=== PATIENT | female | born 1930 | race Caucasian/White ===

== ENCOUNTER 2019-05-11 12:26 | Day surgery (SDC) | payer MEDICARE ==
[~2019-05-11] VITALS: Ht 157.5 cm; Wt 88.4 kg
[~2019-05-11 12:26] MED LIST: GLUC500T PO; LEVO25TA5 PO; LR 1,000 ML IV ONE; NORV5TAB PO; SIMV10TA2 PO; ceFAZolin SOD 1 GM in D5W MINI-BAG PLUS 50 ML IV ONE
[2019-05-11] MEDS ORDERED: fentaNYL 100 MCG/2 ML INJECTION (J3010) As Ordered ONE (14:06)
[2019-05-11] MEDS ORDERED: MIDAZOLAM INJ 2 MG/2 ML VIAL (J2250) As Ordered ONE (14:06)
[2019-05-11] MEDS ORDERED: LIDOCAINE 1% SDV INJ 30 ML VIAL As Ordered ONE (14:18)
[2019-05-11] MEDS ORDERED: dexameTHASONE 4 MG/ML 1ML VIAL (J1100) As Ordered ONE (14:26)
[2019-05-11] MEDS ORDERED: LIDOCAINE 2% INJ 100 MG/5 ML SDV (FOR ANES.) As Ordered ONE (14:26)
[2019-05-11] MEDS ORDERED: ONDANSETRON 4MG/2ML VIAL (J2405) As Ordered ONE (14:26)
[2019-05-11] MEDS ORDERED: PROPOFOL 200 MG/20 ML VIAL As Ordered ONE (14:26)
--- NOTE | 2019-05-11 16:02 | RO ---
DATE OF OPERATION: 05/11/2019 PREOPERATIVE DIAGNOSIS: Implantable loop recorder (ILR) in situ, which was at elective replace of indicator. POSTOPERATIVE DIAGNOSIS: Implantable loop recorder in situ, which was at elective replace of indicator. PROCEDURE PERFORMED: Explantation of old Medtronic LINQ implantable loop recorder. SURGEON: Patel Man MD VALVE PIPE IRRIGATOR: None. ANESTHESIA: Lidocaine 1% local/monitored anesthetic care. FINDINGS: ILR in situ, which was at elective replace of indicator. SPECIMENS: Old Medtronic Reveal LINQ implantable loop recorder. ESTIMATED BLOOD LOSS: Less than 3 mL. No blood products replaced. No drains. No complications. PROCEDURE DESCRIPTION: The patient was prepped and draped over the left anterior chest. Lidocaine 1% was used for local anesthetic. A #15 blade was used to make an incision approximately 1.5 cm in length over the short access of the medial aspect of the implantable loop recorder. The loop recorder was then pulled out with a snap. A bleeding source at the base of the capsule was successfully stopped using a single #2-0 Vicryl tie. The skin was then closed using a continuous subcuticular suture consisting of #4-0 Vicryl with the free ends of the suture protruding from the skin about 1 cm on either side. Two layers of Dermabond was the applied over the incision. The free ends of the Vicryl suture were then cut at the level of the skin. Patient tolerated the procedure well without any immediate complications.
[2019-05-11 16:10] VITALS: BP 167/76
== END 2019-05-11 16:18 | disposition home or self-care (01) ==
LOC: M SDC 12:26
PROVIDERS: ATTEND Internal Medicine Cardiovascular Disease
DX: Z45.09 Encounter for adjustment and management of other cardiac device (principal); Z95.818 Presence of other cardiac implants and grafts; E11.9 Type 2 diabetes mellitus without complications; E78.00 Pure hypercholesterolemia, unspecified; I10 Essential (primary) hypertension; Z79.84 Long term (current) use of oral hypoglycemic drugs; E03.9 Hypothyroidism, unspecified; Z79.899 Other long term (current) drug therapy
CPT/HCPCS: 33286; J0690; J1100; J2250; J2405; J3010

== ENCOUNTER 2019-08-27 22:21 | Inpatient (IN) | payer MEDICARE ==
[~2019-08-27] VITALS: Ht 157.5 cm; Wt 48.9 kg
[~2019-08-27 22:21] MED LIST changes: -LR 1,000 ML IV ONE; -ceFAZolin SOD 1 GM in D5W MINI-BAG PLUS 50 ML IV ONE
--- NOTE | 2019-08-27 23:52 | HPEPDOC ---
[facility] Medical History & Physical Date of Admission Aug 27, 2019 Date of Service: Aug 27, 2019 Attending Physician: CIRA BROWN MD History and Physical CHIEF COMPLAINT: Acute blood loss anemia--transfer from [facility] HISTORY OF PRESENT ILLNESS: Africa Ibarra is an 88 YO F with recent history of heart catheterization at [facility] in [place] who presents with several hours danielle bloody stools. The patient reports that she first noticed bloody stools around noon today. She describes her BM as watery and filled with dark red blood. She states she has started feeling somewhat dizzy and lightheaded but has not fallen. She has not had any shortness of breath. Of note, she recently underwent heart catheterization (06/2019) and stent placement (records will be acquired from [facility]) and is now on aspirin and plavix. She has also recently been worked up for syncope with an implantable loop recorder placed by Dr. Man. She states her last colonoscopy was a few years ago (done in [place]) and she does not remember the results. She does report that she had an episode of GI bleeding many years ago when she lived in [place]. PAST MEDICAL HISTORY: 1. HTN 2. T2DM (non-insulin dependent) 3. Hypercholesterolemia 4. Hypothyroidism PAST SURGICAL HISTORY: 1. Hysterectomy 2. SOCIAL HISTORY: Never smoker. No alcohol. FAMILY HISTORY: Father () had CAD, Mother had cancer, Asthma and Chronic lung disease in other family members ALLERGIES: Please see below. REVIEW OF SYSTEMS: CONSTITUTIONAL: Reports some dizziness/lightheadedness when standing HEENT: denies vision changes, no sinus problems, denies any trouble swallowing CARDIOVASCULAR: no palpitations RESPIRATORY: Denies any shortness of breath GENITOURINARY: No dysuria MUSCULOSKELETAL: Denies any joint/muscle pain GASTROINTESTINAL: Denies abdominal pain, no nausea/vomiting/diarrhea SKIN: No new rashes or lesions NEUROLOGICAL: No loss of sensation PSYCHIATRIC: Reports normal mood, no delusions or hallucinations ENDOCRINE: No hot/cold intolerance HEMATOLOGIC/LYMPHATIC: No easy bruising, no lumps/bumps ALLERGIC/IMMUNOLOGIC: No sinus symptoms HOME MEDICATIONS: Please see below. PHYSICAL EXAMINATION: VITAL SIGNS: Please see below. GENERAL APPEARANCE: Laying in bed, appears stated age, no acute distress, calm, cooperative HEENT: EOMI, PERRLA, neck is supple with no thyromegaly or lymphadenopathy, there is no conjunctival pallor, tongue is normal RESPIRATORY: Lungs are clear to auscultation bilaterally with no adventitious breath sounds appreciated CARDIOVASCULAR: no JVD, RRR, no murmurs/rubs/gallops, capillary refill is 4+ in all extremities ABDOMEN: Soft, nontender to palpation in all four quadrants, no masses/organomegaly EXTREMITIES: no clubbing, cyanosis or edema noted NEUROLOGICAL: No obvious focal deficits PSYCHIATRIC: normal mood/affect Skin: No rashes or ulcers. LN: No significant cervical or inguinal lymphadenopathy LABORATORY DATA: See below. IMAGING: none MICROBIOLOGY: Please see below. ASSESSMENT: This is an 88 YO F with recent history heart catheterization and stent placement (on ASA, plavix) who presents with several hours melanotic stools. PLAN: 1. Acute blood loss anemia: -H/H now 8.7/27.5. Patient is somewhat symptomatic with lightheadedness/dizziness -Will trend H/H -IV protonix -NPO for now -Type & Screen, pRBCs ordered for transfusion if Hgb <8 -Will order orthostatic vitals -Will continue ASA, Plavix for now so as to not cause stent thrombosis -Consider GI consult in AM for colonoscopy/EGD 2. CAD with recent stent placement: -Will obtain records from [facility]. Unsure of whether BMS or RIGO -Continue ASA, plavix for now -Consider Cardiology c/s in AM 3. Hypertension: -Continue home Valsartan 4. Hypothyroidism: -Thyroid panel pending -Continue home Levothyroxine 5. Anxiety disorder: -Continue home Buspar DISPO: Pending clinical improvement Home Medications Scheduled Aspirin (Aspir 81) 81 Mg Tablet.dr, 81 MG PO DAILY Atorvastatin Calcium (Atorvastatin Calcium) 40 Mg Tablet, 40 MG PO QHS Buspirone HCl (Buspirone HCl) 5 Mg Tablet, 5 MG PO BID PRESCRIBED 08/24/2019, HAS NOT STARTED Clopidogrel Bisulfate (Clopidogrel) 75 Mg Tablet, 75 MG PO QHS STARTED 08/21/2019 Levothyroxine Sodium (Levothyroxine Sodium) 25 Mcg Tablet, 25 MCG PO DAILY Metformin HCl (Glucophage) 500 Mg Tablet, 1,000 MG PO BID Metoprolol Tartrate (Metoprolol Tartrate) 25 Mg Tablet, 25 MG PO BID Multivitamin (Daily Kadeem) 1 Each Tablet, 1 TAB PO QHS Nitroglycerin (Nitrostat) 0.4 Mg Tab.subl, 0.4 MG SL NITRO Valsartan (Valsartan) 160 Mg Tablet, 160 MG PO QHS Allergies Coded Allergies: No Known Allergies (Unverified , 05/10/19) A-FIB/CHADSVASC A-FIB History Current/History of A-Fib/PAF?: No GME ATTESTATION GME ATTESTATION My faculty preceptor for this patient encounter was physically present during the encounter and was fully available. All aspects of the patient interview, examination, medical decision making process, and medical care plan development were reviewed and approved by the faculty preceptor. The faculty preceptor is aware and concurs with the plan as stated in the body of this note and will attest to such by his/her cosignature. ATTENDING NOTE I examined at 1155PM, discussed the case with and agree with the findings as documented above with the addition of the following. is an 88 yr old F w a PMH of NIDDM, Chronic HTN, Hypothyroidism, and CAD s/p stent placement last week who was transferred from [facility] for evaluation of BRBRP that begun at around 12 noon. Per d/w (ED Attending) her rectal exam was positive for BRBPR. Her physical exam is unremarkable. 1. Asymptomatic Acute Blood Loss Anemia 2/2 LGIB Her Hg was 9.7 which dropped from baseline of around 11.3. Plan: NPO w D5NS / f/u serial H/H / will aim to keep her Hg >8 because of her recent diagnosis of ACS / GI consult for possible c-scope this admission vs out pt c-scope at a later date 2. CAD / s/p Stent placement The patient had a stent placed on Aug 19 but is not sure if it is a RIGO or BMS She took ASA and Plavix at dinner time Per d/w Dr Bhandari her trop was wnl and the EKG showed NSR w an old inferior infarct which was similar to the previous EKG Plan: obtain records from [facility] to determine if she had a drug eluting vs BM stent / c/w DAPT for now to prevent early stent thrombosis / the day time team can consult Cardio in the morning to confirm that the patient needs to remain on DAPT for now 3.NIDDM Plan: f/u serum glucose & A1C / SSI / hold metformin rest per 's notes LATE ENTRY The patient's repeat Hg decreased to 8.7 and her MAP has decreased to 69. Per d/w IR we will order 2 units of PRBCs, CTA of the abdomen and pelvis (GI) protocol and transfer her to ICU. I will ask the day time team team to f/u with after the scan has been done. GME ATTESTATION GME ATTESTATION My faculty preceptor for this patient encounter was physically present during the encounter and was fully available. All aspects of the patient interview, examination, medical decision making process, and medical care plan development were reviewed and approved by the faculty preceptor. The faculty preceptor is aware and concurs with the plan as stated in the body of this note and will attest to such by his/her cosignature. MARGARITA JENKINS MD Aug 27, 2019 23:52 CIRA BROWN MD Aug 28, 2019 00:15
[2019-08-28] VITALS: BP 174/77
[2019-08-28] MEDS ORDERED: VALS1TAB67 PO (00:35)
[2019-08-28] MEDS ORDERED: DAILTAB51 PO (00:35)
[2019-08-28] MEDS ORDERED: NITR4TASL SL (00:35)
[2019-08-28] MEDS ORDERED: NS 1,000 ML IV SCH (00:35)
[2019-08-28] MEDS ORDERED: CLOP75TA2 PO (00:35)
[2019-08-28] MEDS ORDERED: METO25TA4 PO (00:35)
[2019-08-28] MEDS ORDERED: ATOR40TA75 PO (00:35)
[2019-08-28] MEDS ORDERED: ASPI81TA85 PO (00:36)
[2019-08-28] MEDS ORDERED: BUSP5TA PO (00:37)
[2019-08-28] MEDS ORDERED: GLUCOSE 4 GM CHEW TABLET PO PRN (01:00)
[2019-08-28] MEDS ORDERED: DEXTROSE 50% 50 ML SYRINGE IV PRN (01:00)
[2019-08-28] MEDS ORDERED: GLUCAGON FOR INJ 1 MG VIAL (J1610) SC PRN (01:00)
[2019-08-28 01:01] LABS: HEMATOCRIT 27.5 % (36.0-47.0); HEMOGLOBIN 8.7 g/dl (12.0-15.5); MEAN CORPUSCULAR HEMOGLOBIN 30.9 pg (27.0-33.0); MEAN CORPUSCULAR HGB CONC 31.6 g/dl (32.0-36.5); MEAN CORPUSCULAR VOLUME 97.5 fl (80.0-96.0); PLATELET COUNT, AUTOMATED 211 10^3/uL (150-450); RED BLOOD COUNT 2.82 10^6/uL (4.00-5.40); WHITE BLOOD COUNT 6.2 10^3/uL (4.0-10.0)
[2019-08-28] MEDS ORDERED: D5W/0.9% SODIUM CHLORIDE 1,000 ML IV ONE (01:15)
[2019-08-28] MEDS ORDERED: NITROGLYCERIN 0.4 MG SUBL TABLET SL PRN (01:15)
[2019-08-28 01:45] LABS: ALBUMIN 2.8 GM/DL (3.2-5.2); BILIRUBIN,TOTAL 0.3 MG/DL (0.2-1.0); CALCIUM LEVEL 8.4 MG/DL (8.8-10.2); CREATININE FOR GFR 1.03 MG/DL (0.55-1.30); GLOMERULAR FILTRATION RATE 53.7 (>32); POTASSIUM SERUM 4.7 MEQ/L (3.5-5.1); TOTAL PROTEIN 5.6 GM/DL (6.4-8.2); TROPONIN I 0.04 NG/ML (< 0.10)
[2019-08-28 01:48] LABS: HEMOGLOBIN A1c 5.5 %
[2019-08-28 01:50] LABS: FREE THYROXINE INDEX 2.5 % (1.3-4.8); THYROID STIMULATING HORMONE 3.97 uIU/ML (0.358-3.740); THYROXINE (T4) 6.5 UG/DL (4.5-12.0)
[2019-08-28] MEDS: PANTOPRAZOLE 40MG INJ (PROTONIX) (C9113) IV SCH ×2 (02:05→08:52)
[2019-08-28] MEDS ORDERED: VALSARTAN 80 MG TAB (DIOVAN) PO SCH ×2 (02:15→21:00)
[2019-08-28 04:00] VITALS: BP_SYST 121; BP_SYST 98; BP_DIAS 54; BP_DIAS 74
[2019-08-28] MEDS ORDERED: D5/0.9%NACL 1000ML IV ONE (06:00)
[2019-08-28] MEDS ORDERED: LEVOTHYROXINE 25MCG TABLET (0.025MG) PO SCH (06:00)
[2019-08-28 06:04] LABS: HEMATOCRIT 24.1 % (36.0-47.0); HEMOGLOBIN 7.8 g/dl (12.0-15.5)
[2019-08-28] MEDS ORDERED: GOLYTELY SOLN 4000 ML BTL PO ONE (06:15)
[2019-08-28] MEDS ORDERED: D5W/0.9% SODIUM CHLORIDE 1,000 ML IV SCH (06:15)
[2019-08-28] MEDS ORDERED: HumaLOG INSULIN (NovoLOG) PER UNIT SC SCH ×2 (07:30→21:00)
[2019-08-28 07:55] VITALS: BP 121/59
[2019-08-28 08:40] VITALS: BP 140/63
--- NOTE | 2019-08-28 08:47 | DS.PDOC ---
Discharge Summary General Date of Admission Aug 27, 2019 at 23:58 Date of Discharge 08/28/19 Discharge Summary PROCEDURES PERFORMED DURING STAY: [None]. ADMITTING DIAGNOSES: Acute blood loss anemia CAD with recent stent placement Hypertension Hypothyroidism Anxiety disorder DISCHARGE DIAGNOSES: Acute blood loss anemia CAD with recent stent placement Hypertension Hypothyroidism Anxiety disorder COMPLICATIONS/CHIEF COMPLAINT: Gi Bleed. HISTORY OF PRESENT ILLNESS: Africa Ibarra is an 88 YO F with recent history of heart catheterization at [facility] in [place] who presents with several hours danielle bloody stools. The patient reports that she first noticed bloody stools around noon today. She describes her BM as watery and filled with dark red blood. She states she has started feeling somewhat dizzy and lightheaded but has not fallen. She has not had any shortness of breath. Of note, she recently underwent heart catheterization (08/18/2019) and stent placement (records will be acquired from [facility]) and is now on aspirin and plavix. She has also recently been worked up for syncope with an implantable loop recorder placed by Dr. Man. She states her last colonoscopy was a few years ago (done in [place]) and she does not remember the results. She does report that she had an episode of GI bleeding many years ago when she lived in [place]. In emergency room patient was found to have hemoglobin of 8.7 with a baseline around 11. HOSPITAL COURSE: During hospital course patient developed hypotension with blood pressure around 85/65, stabilized after fluid resuscitation, patient continued to have frequent bowel movements with red bright blood. Dual antiplatelet therapy has been stopped due to ongoing bleed. Loading Checker Dr. Aldrich recommended to transfer her to cardiac facility with cardiac catheterization lab due to high risk of stent thrombosis. Patient receives IV PPI. Blood transfusion ordered, but patient did not receive it. At 5 am Hb was 7.8 DISCHARGE MEDICATIONS: Please see below. ALLERGIES: Please see below. PHYSICAL EXAMINATION ON DISCHARGE: VITAL SIGNS: Please see below. GENERAL APPEARANCE: Laying in bed, appears stated age, no acute distress, calm, cooperative HEENT: EOMI, PERRLA, neck is supple with no thyromegaly or lymphadenopathy, there is no conjunctival pallor, tongue is normal RESPIRATORY: Lungs are clear to auscultation bilaterally with no adventitious breath sounds appreciated CARDIOVASCULAR: no JVD, RRR, no murmurs/rubs/gallops, capillary refill is 4+ in all extremities ABDOMEN: Soft, nontender to palpation in all four quadrants, no masses/organomegaly EXTREMITIES: no clubbing, cyanosis or edema noted NEUROLOGICAL: No obvious focal deficits PSYCHIATRIC: normal mood/affect LABORATORY DATA: Please see below. PROGNOSIS: Favorable ACTIVITY: Bed rest for today DIET: Nothing by mouth DISPOSITION: . Transfer to [facility] DISCHARGE INSTRUCTIONS: Dual antiplatelet therapy on hold for now due to ongoing GI bleed ITEMS TO FOLLOWUP ON ON OUTPATIENT: Follow-up with Loading Checker and cripple chaser after discharge DISCHARGE CONDITION: Stable TIME SPENT ON DISCHARGE: Greater than 20 minutes. Vital Signs/I&Os Vital Signs Date Time Temp Pulse Resp B/P (MAP) Pulse Ox O2 Delivery O2 Flow Rate FiO2 08/28/19 07:55 97.4 65 18 121/59 (79) 98 Room Air I&O- Last 24 Hours up to 6 AM 08/28/19 06:00 Intake Total 0 ml Output Total 850 ml Balance -850 ml Laboratory Data Labs 24H Laboratory Tests 2 08/28/19 00:50: Estimated Mean Plasma Glucose 111H, Hemoglobin A1c 5.5 08/28/19 00:54: Nucleated Red Blood Cells % (auto) 0.0, Anion Gap 8, Glomerular Filtration Rate 53.7, Calcium Level 8.4L, Total Bilirubin 0.3, Aspartate Amino Transf (AST/SGOT) 13, Alanine Aminotransferase (ALT/SGPT) 14, Alkaline Phosphatase 48, Troponin I 0.04, Total Protein 5.6L, Albumin 2.8L, Albumin/Globulin Ratio 1.00, Thyroid Stimulating Hormone (TSH) 3.970H, Free Thyroxine Index 2.5, Thyroxine (T4) 6.5, Triiodothyronine (T3) Uptake 39 08/28/19 05:30: Troponin I 0.04 CBC/BMP Laboratory Tests 08/28/19 00:54 08/28/19 05:30 Discharge Medications Scheduled Atorvastatin Calcium (Atorvastatin Calcium) 40 Mg Tablet, 40 MG PO QHS, (Reported) Buspirone HCl (Buspirone HCl) 5 Mg Tablet, 5 MG PO BID, (Reported) PRESCRIBED 08/24/2019, HAS NOT STARTED Levothyroxine Sodium (Levothyroxine Sodium) 25 Mcg Tablet, 25 MCG PO DAILY, (Reported) Metformin HCl (Glucophage) 500 Mg Tablet, 1,000 MG PO BID, (Reported) Metoprolol Tartrate (Metoprolol Tartrate) 25 Mg Tablet, 25 MG PO BID, (Reported) Multivitamin (Daily Kadeem) 1 Each Tablet, 1 TAB PO QHS, (Reported) Nitroglycerin (Nitrostat) 0.4 Mg Tab.subl, 0.4 MG SL NITRO, (Reported) Valsartan (Valsartan) 160 Mg Tablet, 160 MG PO QHS, (Reported) Allergies Coded Allergies: No Known Allergies (Unverified , 05/10/19) YAZAN BOYER DO Aug 28, 2019 08:47
[2019-08-28 08:50] VITALS: BP 140/63
[2019-08-28] MEDS ORDERED: ASPIRIN 81 MG ENTERIC TAB PO SCH (09:00)
[2019-08-28] MEDS ORDERED: busPIRone 5 MG TAB PO SCH (09:00)
[2019-08-28] MEDS ORDERED: METOPROLOL TART 25 MG TABLET PO SCH (09:00)
[2019-08-28] MEDS ORDERED: MULTIVITAMINS/MINERALS THERAP 1 TAB PO SCH (09:00)
[2019-08-28 10:20] VITALS: BP 135/64
[2019-08-28] MEDS ORDERED: ATORVASTATIN 20 MG TAB PO SCH (21:00)
[2019-08-28] MEDS ORDERED: CLOPIDOGREL 75 MG TAB PO SCH (21:00)
== END 2019-08-28 10:52 | disposition short-term general hospital (02) | DRG 378 ==
LOC: M PCU 23:58 → M ICU 08-28 07:51
PROVIDERS: ADMIT Internal Medicine; ATTEND Internal Medicine
DX: K92.1 Melena (principal); D62 Acute posthemorrhagic anemia; I10 Essential (primary) hypertension; E11.9 Type 2 diabetes mellitus without complications; I95.9 Hypotension, unspecified; E78.00 Pure hypercholesterolemia, unspecified; E03.9 Hypothyroidism, unspecified; I25.10 Atherosclerotic heart disease of native coronary artery without angina pectoris; Z95.5 Presence of coronary angioplasty implant and graft; Z79.82 Long term (current) use of aspirin; Z79.84 Long term (current) use of oral hypoglycemic drugs; Z79.899 Other long term (current) drug therapy